=== PATIENT | male | born 1975 | race Caucasian/White ===

== ENCOUNTER 2018-05-23 07:53 | Outpatient (CLI) | payer BC | END 2018-05-23 23:59 | disposition home or self-care (01) | LOC: RAD 07:53 | PROVIDERS: ATTEND Psychiatry & Neurology Neurology | DX: R51 Headache (principal); Z86.73 Personal history of transient ischemic attack (TIA), and cerebral infarction without residual deficits | CPT/HCPCS: 95816 ==